=== PATIENT | male | born 1970 | race Caucasian/White ===

== ENCOUNTER 2017-03-31 01:50 | Inpatient (IN) | payer BC ==
[~2017-03-31] VITALS: Ht 177.8 cm; Wt 100.6 kg
--- NOTE | ~2017-03-31 | OP ---
PATIENT NAME: JANEL TORREZ MEDICAL RECORD: [id number] :66 LOCATION:D.M2 D.2119 ADMISSION DATE:03/31/17 SURGEON: RENETTA TRUONG MD DATE OF OPERATION: 04/01/2017 PREOPERATIVE DIAGNOSES: 1. Acute calculous cholecystitis. 2. Chronic low back pain. POSTOPERATIVE DIAGNOSES: 1. Acute calculous cholecystitis. 2. Chronic low back pain. PROCEDURE: Laparoscopic cholecystectomy. SURGEON: Renetta Truong MD REPORT OF PROCEDURE: The patient's abdomen was prepped and draped in sterile fashion. A cutdown was made on the superior aspect of the umbilicus, 0 Vicryls were placed on the fascia bilaterally and the fascia was incised with 15-blade. I then bluntly entered the peritoneal cavity and placed a 12-mm Coco port. Under direct visualization, a 5 mm trocar was placed in the epigastrium and 2 more 5-mm trocars were placed in the right subcostal region. There was a lot of inflammatory adhesions of fatty tissue to the patient's gallbladder. We were able to pull some of this down. I could see the gallbladder was very distended and swollen. We aspirated the gallbladder and there was a clear return of fluid consistent with hydrops gallbladder. We continued our dissection down. We were eventually able to find the cystic artery and cystic duct. These structures were clipped proximally and distally and ligated in standard fashion. The gallbladder was then taken off the liver bed using electrocautery and placed into an Endo Catch bag. Any bleeding from the liver bed was treated with electrocautery. We irrigated out the right upper quadrant and assured there was no sign of any bleeding or bile leakage. At this point, the ports and insufflation were then removed and the gallbladder was taken out through the umbilicus. The umbilical fascia was closed with interrupted 0 Vicryls times 3. The wounds were irrigated out with normal saline and infused with 10 mL of 0.25% Marcaine with epinephrine. The skin incisions were all closed with subcutaneous 5-0 Monocryl and dressed appropriately. COMPLICATIONS: None. CONDITION: Stable. ANESTHESIA: General endotracheal and local. BLOOD LOSS: 50 mL. TRANSINT:[id number] Voice Confirmation ID: [id number] DOCUMENT ID: [id number] OPERATIVE REPORT [id number] JANEL TORREZ RENETTA TRUONG MD CC: [id number] DICTATION DATE: 04/01/17 1504 ELECTROTYPER HELPER: 04/01/171910 ADM IN [facility] [address] [place] [id number]
--- NOTE | ~2017-03-31 | CN ---
PATIENT NAME:JANEL TORREZ MEDICAL RECORD: [id number] : 66 LOCATION:D. D.2119 ADMIT DATE: 03/31/17 ACCOUNT: [id number] CONSULTING PHYSICIAN: YOSVANY WILL MD REFERRING PHYSICIAN: AUGUST TAMAYO MD DATE OF CONSULTATION: 03/31/2017 CONSULT REQUESTING PHYSICIAN: August Tamayo MD. REASON FOR CONSULTATION: Pulmonary fibrosis. HISTORY OF PRESENT ILLNESS: Mr. Torrez is a 46-year-old gentleman who has developed right upper quadrant pain. He was also having associated chest pain. The patient went to the [facility]. He had a CT angiography, which showed some pulmonary fibrosis. The patient also carries a diagnosis of COPD, but he is doing fairly and he is just using Pulmicort inhaler. The patient is still an everyday smoker, half pack per day. He was a pack a day since the age of 15. REVIEW OF SYSTEMS: As in history of present illness. PAST MEDICAL HISTORY: 1. Hypertension. 2. History of pneumonia. 3. COPD. 4. He has a history of cholecystitis. PAST SURGICAL HISTORY: He has a back surgery. ALLERGIES: HE IS ALLERGIC TO TORADOL. PRESENT MEDICATIONS: WP Engine was reviewed. PERSONAL AND SOCIAL HISTORY: The patient is still everyday smoker, half pack per day. He is a nondrinker. FAMILY HISTORY: Significant for parent has cancer. PHYSICAL EXAMINATION: GENERAL: Now, the patient is lying comfortably in bed. He is not in acute distress. VITAL SIGNS: The blood pressure is 91/58, pulse is 75, respirations 16, temperature is 97.7, and SpO2 is 95% on room air. HEENT: Conjunctivae are pink, sclerae nonicteric. NECK: Supple, no JVD. CHEST: The chest excursion is minimal on both sides. There are bibasilar crackles. No wheezing. HEART: Rhythm regular, normal sound, no murmur. ABDOMEN: Soft. Bowel sounds present. No hepatosplenomegaly. RECTAL: Deferred. EXTREMITIES: No cyanosis, no clubbing, no pedal edema. SKIN: Warm. Normal turgor. CENTRAL NERVOUS SYSTEM: The patient is awake and alert. There is no obvious cranial nerve abnormality. The gait was not tested. IMAGING: CTA of the chest from [facility], there is bilateral pulmonary CONSULT REPORT [id number] JANEL TORREZ ADRIEL fibrosis. There were no pulmonary embolisms. OTHER LABORATORY DATA: CBC: WBC 8.3. There are no labs available over here. In April, his SINCERE was negative. The ANCA was negative. Rheumatoid factor was negative. IMPRESSION: 1. Possible pulmonary fibrosis, rule out pulmonary edema. 2. Chronic obstructive pulmonary disease without exacerbation. 3. Cholecystitis and cholelithiasis. 4. Tobacco dependence syndrome. 5. Hypertension. RECOMMENDATION: 1. The patient has negative rheumatoid factor and SINCERE. He also had a negative ANCA in April 2015. 2. We will check a proBNP and follow up chest radiograph. 3. Cardiac echo if required. 4. The patient was counseled to quit smoking. 5. Albuterol and ipratropium nebulizer, Brovana and budesonide nebulizer. 6. The patient will need full PFT as outpatient to rule out any restriction. Dr. Tamayo, thank you for involving me in the care of Mr. Torrez. TRANSINT:[id number] Voice Confirmation ID: [id number] DOCUMENT ID: [id number] YOSVANY WILL MD CC: AUGUST TAMAYO MD [id number] DICTATION DATE: 03/31/17 1622 INSIDE SALES RECRUITER: 03/31/17 1726 ADM IN [place] [id number] [place] [id number]
--- NOTE | 2017-03-31 01:30 | NUR ---
PT ARRIVES VIA EMS FROM [facility]. ASSISTED INTO ROOM AND PLACED ON TELEMETRY - NSR ON MONITOR, HR 90'S. O2 2LPM NC, SATS 97%. MEDICATION RECONCILED WITH THE PT AT THE BEDSIDE. ADMISSION ASSESSMENT AND HISTORY COMPLETED. VSS, AFEBRILE. C/O RUQ PAIN. TORADOL ORDERED FOR PAIN ON TRANSFER ORDERS FROM DR TAMAYO'S OFFICE. PT UPDATED ON POC AND UNIT ROUTINES AND PROTOCOLS DISCUSSED, VERBALIZED UNDERSTANDING. WILL CONT TO MONITOR.
[~2017-03-31 01:50] MED LIST: COMBIVENT RESPIM4 GM INH; FEXMID7.5 MG PO; HYDROCODONE-APA1 TAB PO; MEDROL DOSE PACK4 MG PO; MUCINEX600 MG PO
[2017-03-31] MEDS ORDERED: PULMICORT180 MCG/AE INH (01:55)
[2017-03-31] MEDS ORDERED: PROZAC20 MG PO (01:56)
[2017-03-31] MEDS ORDERED: VITAMIN D5000 UNIT PO (01:56)
[2017-03-31] MEDS ORDERED: LISINOPRIL10 MG PO (01:56)
[2017-03-31 01:58] VITALS: BMI 30.9
[2017-03-31] MEDS ORDERED: BUTRANS1 EAC1 TRANSDERM (01:58)
--- NOTE | 2017-03-31 02:41 | NUR ---
PT STATES UPON ADMISSION WHEN ASKED ABOUT HIS ALLERGIES THE PT STATES THAT HE IS NOT ALLERGIC TO ANYTHING. PT WITH TORADOL 30 MG IV Q6H PRN PAIN ORDERED BY HIS PCP, DR TAMAYO, ON TRANSFER ORDERS. BEFORE GIVING PT TORADOL ORDERED HIS FIANCE ARRIVES AND STATES HE IS ALLERGIC TO TORADOL AND THAT MORPHINE DOES NOT WORK FOR HIS PAIN. FIANCE STATES THAT HE NEEDS "DILAUDID" AND REQUESTS THIS NURSE TO CALL THE PHYSICIAN AT THIS TIME. CALL TO LUIS SORTO APN ON-CALL. ORDER RECEIVED FOR DILAUDID 1 MG IV Q4H PRN PAIN. PT AND HIS FIANCE UPDATED ON POC AND VERBALIZES UNDERSTANDING.
[2017-03-31 04:00] VITALS: BP 91/58
--- NOTE | 2017-03-31 07:30 | NUR ---
AAOX4 RESP UNLABORED SKIN W/D DENIES ANY NEEDS OR DISCOMFORT AT THIS TIME
[2017-03-31 08:15] VITALS: BP 100/60
[2017-03-31 12:00] VITALS: BP 127/66
--- NOTE | 2017-03-31 13:24 | NUR ---
RESTING QUIETLY WATCHING TV DENIES ANY NEEDS OR DISCOMFORT NAD NOTED
[2017-03-31 16:05] VITALS: BP 103/65
[2017-03-31 20:00] VITALS: BP 93/61
--- NOTE | 2017-03-31 20:00 | NUR ---
PT RESTING IN BED. UNIT #1 OF 2 PBC IN PROGRESS. WILL VS BEING MONITORED. FOLE PATENT TO BEDSIDE DRAIN BED WITH BLOODY URINE. DENIES PAIN OR DISCOMFORT. SEE ASSESSMENT AND CPOC.
[2017-03-31 23:37] VITALS: BP 97/57
--- NOTE | 2017-04-01 00:45 | NUR ---
NEW IVF INFUSING. PT AWAKE, ASLEEP AT BEDISE
[2017-04-01 05:00] VITALS: BP 95/60
[2017-04-01 06:30] LABS: BASOPHILS 0.5 % (0-2); EOSINOPHILS 8.5 % (0-7); HEMATOCRIT 38.4 % (42.0-54.0); HEMOGLOBIN 12.8 g/dL (13.5-17.5); LYMPHOCYTES 29.2 % (15-50); MCH 30.8 pg (26.0-34.0); MCHC 33.3 g/dL (31.0-37.0); MCV 92.5 fL (80.0-100.0); MEAN PLATELET VOLUME 9.4 fL (7.4-10.4); MONOCYTES 10.3 % (2-11); NEUTROPHILS 51.5 % (40-80); RBC 4.15 10x6/uL (4.20-6.10); RDW 14.3 % (11.5-14.5); WBC 8.1 10x3/uL (4.8-10.8)
[2017-04-01 06:33] LABS: PLATELET COUNT 198 10x3/uL (130-400)
[2017-04-01 06:51] LABS: ALBUMIN 3.1 g/dL (3.4-5.0); ALKALINE PHOSPHATASE 71 U/L (46-116); ALT (SGPT) 74 U/L (10-68); CALC OSMOLALITY 279 mosm/kg (275-300); CALCIUM 8.4 mg/dL (8.5-10.1); CARBON DIOXIDE 28.4 mmol/L (21.0-32.0); CHLORIDE - SERUM 104 mmol/L (98-107); GLUCOSE 96 mg/dL (74-106); POTASSIUM - SERUM 3.7 mmol/L (3.5-5.1); PROTEIN - SERUM 6.7 g/dL (6.4-8.2); SODIUM 141 mmol/L (136-145); UREA NITROGEN 10 mg/dL (7-18); eGFR NON AFRICAN AMERICAN 85 mL/min (90-120)
[2017-04-01 08:00] VITALS: BP 103/48
--- NOTE | 2017-04-01 10:28 | CN ---
PATIENT NAME:JANEL TORREZ MEDICAL RECORD: [id number] : 66 LOCATION:D. D.2119 ADMIT DATE: 03/31/17 ACCOUNT: [id number] CONSULTING PHYSICIAN: BAL HUITRON MD REFERRING PHYSICIAN: TEODORO TAMAYO MD DATE OF CONSULTATION: 03/31/2017 HISTORY OF PRESENT ILLNESS: A 46-year-old gentleman with a known cardiovascular history. He has a history of hypertension, back surgery in the past. He was admitted with atypical chest pain and was found to abnormal ECG. We are asked to see him for the above. He was found to have acute cholecystitis, may need surgical intervention at some point. We are asked to see him concerning his cardiovascular status. PAST MEDICAL HISTORY: Includes: 1. History of obstructive pulmonary disease. 2. Chronic pain syndrome. ALLERGIES: TORADOL. MEDICATIONS: Include Pulmicort inhaler 2 puffs b.i.d., Kidder 10/325 two tabs q.6 p.r.n., buprenorphine 10 mcg an hour patch, Prozac 20 q. day, Lisinopril 5 q. day. SOCIAL HISTORY: Lives in [place]. Smokes about a pack a day. No illicit drugs. Easily takes care of all his ADLs. REVIEW OF SYSTEMS: The patient reports easy bruising but reports no swollen glands. The patient reports no fever, no night sweats, no significant weight gain, no significant weight loss. No significant exercise tolerance. The patient reports no dry eyes, no irritation, no vision change. Patient reports no difficulty hearing and no ear pain. Patient reports no frequent nose bleeds or nose and sinus problems. Patient reports on arm pain on exertion. No shortness of breath while lying down. No history of heart murmur. Patient reports no cough, no wheezing or coughing up blood. Patient reports no abdominal pain, no vomiting. Normal appetite. No diarrhea and not vomiting blood. No nausea and no constipation. Patient reports no incontinence. No difficulty urinating. No hematuria. No increased frequency. Patient reports no muscle aches. No weakness, no arthralgias, no back pain. No swelling of the extremities. Patient reports no abnormal mole, no jaundice, no rashes. Reports no loss of consciousness. No weakness and no numbness. No seizures, dizziness, or headaches. The patient reports no depression, no sleep disturbance, feeling safe in a relationship and no alcohol abuse. Patient reports on fatigue. Reports no runny nose or sinus pressure. No itching, no hives, and no frequent sneezing. PHYSICAL EXAMINATION: GENERAL: Pleasant. No acute distress. VITAL SIGNS: Blood pressure 100/60, pulse 68, occasional extrasystole. HEENT: Normocephalic, atraumatic. NECK: No bruits noted. HEART: Regular, II/ systolic ejection murmur. LUNGS: Prolonged expiratory phase, few wheezes. ABDOMEN: Soft, nontender. EXTREMITIES: Pulses well preserved, 2+ with no edema. CONSULT REPORT [id number] TORREZJANEL NEUROLOGIC: Grossly intact. DIAGNOSTIC DATA: ECG shows right bundle and right atrial abnormality, leftward axis. IMPRESSION: Suspect noncardiac etiology with chest pain. Enzymes negative so far. We will check echocardiographic study. No contraindication to surgery from cardiovascular standpoint. TRANSINT:[id number] Voice Confirmation ID: [id number] DOCUMENT ID: [id number] BAL HUITRON MD at 1028 CC: [id number] DICTATION DATE: 03/31/17 1001 SODA FLAKER: 03/31/17 1126 ADM IN [facility] [address] [place] [address]
[2017-04-01 12:00] VITALS: BP 108/64
[2017-04-01 12:39] VITALS: Ht 177.8 cm; Wt 100.6 kg
[2017-04-01 15:49] VITALS: BP 121/72
--- NOTE | 2017-04-01 15:54 | NUR ---
BACK FROM OR. VS WNL. BANDAIDS X 4 TO ABD. NOTED. WILL CONT. PLAN OF CARE.
[2017-04-01 16:00] VITALS: BP 121/72
--- NOTE | 2017-04-01 16:46 | NUR ---
TOLERATING LIQUIDS. DIET ADVANCED TO SOFT.
--- NOTE | 2017-04-01 19:00 | NUR ---
RECEIVED REPORT AND ASSUMED PT CARE FROM DAY SHIFT NURSE @ THIS TIME.
--- NOTE | 2017-04-01 19:03 | NUR ---
RECEIVED REPORT AND ASSUMED PT CARE FROM DAY SHIFT NURSE @ THIS TIME
[2017-04-02 01:09] VITALS: BP 101/55
[2017-04-02 04:00] VITALS: BP 92/42
--- NOTE | 2017-04-02 04:15 | NUR ---
PT STATES THAT OTHER SPATIAL SCIENTIST IS NOT CONTROLLING HIS PAIN VERY WELL AT THIS TIME. WOULD LIKE TO KNOW IF DOSAGE CAN BE INCREASED. EXPLAINED TO HIM IT COULD NOT. AFTER REVIEWING HIS ORDERS AND MEDICATION ON EMAR, PT HAS DILAUDID 1 MG IV ORDERED Q4H PRN. WILL MEDICATE AT THIS TIME.
--- NOTE | 2017-04-02 04:20 | NUR ---
AFTER FURTHER RESEARCHING, WHILE ON PHARMACEUTICAL PROCESS ENGINEER PT CAN ONLY RECEIVE DILAUDID 0.4 MG IV Q3H PRN FOR PAIN. WILL MONITOR.
[2017-04-02 08:00] VITALS: BP 119/64
--- NOTE | 2017-04-02 09:00 | NUR ---
UP AMBULATING HALLWAY. GAIT STEADY.
--- NOTE | 2017-04-02 09:56 | NUR ---
IV RESTARTED TO LEFT FA WITH 22 GAUGE CATH X 2 STICKS AND FLUSHED WITH NS. LINE IS PATENT.
[2017-04-02 12:00] VITALS: BP 92/51
[2017-04-02 13:14] LABS: IMMUNOGLOBULIN A 142 mg/dL (90-386); IMMUNOGLOBULIN M 41 mg/dL (20-172)
[2017-04-02] MEDS ORDERED: PERCOCET 10/3251 TA1 PO (14:47)
[2017-04-02 16:00] VITALS: BP 107/53
[2017-04-02 19:00] VITALS: BP 115/78
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
--- NOTE | 2017-04-02 20:58 | NUR ---
PT ALREADY COMPLETED ABT AND IS NOW SALINE LOCKED AND UP AND WALKING HALLWAY WITH HIS .
[2017-04-03] VITALS: BP 115/47
[2017-04-03 03:10] LABS: IGG SUBCLASS 1 663 mg/dL (248-810); IGG SUBCLASS 2 201 mg/dL (130-555); IGG SUBCLASS 3 65 mg/dL (15-102); IGG SUBCLASS 4 10 mg/dL (2-96)
--- NOTE | 2017-04-03 04:36 | NUR ---
PT WAS AWAKENED FOR AM LAB AND REQUESTED HIS IV DILAUDID. MEDICATION GIVEN. PT BACK TO SLEEP.
[2017-04-03 05:07] LABS: BASOPHILS 0.3 % (0-2); EOSINOPHILS 7.7 % (0-7); HEMATOCRIT 35.3 % (42.0-54.0); HEMOGLOBIN 11.8 g/dL (13.5-17.5); IMMATURE GRANULOCYTES 0.1 % (0-5); MCH 30.8 pg (26.0-34.0); MCHC 33.4 g/dL (31.0-37.0); MCV 92.2 fL (80.0-100.0); MEAN PLATELET VOLUME 9.6 fL (7.4-10.4); NEUTROPHILS 55.9 % (40-80); PLATELET COUNT 207 10x3/uL (130-400); RBC 3.83 10x6/uL (4.20-6.10); RDW 14.4 % (11.5-14.5); WBC 9.8 10x3/uL (4.8-10.8)
[2017-04-03 05:53] LABS: MAGNESIUM - SERUM 1.9 mg/dL (1.8-2.4); PHOSPHOROUS 3.9 mg/dL (2.5-4.9)
--- NOTE | 2017-04-03 07:28 | NUR ---
PT LAYING FLAT IN BED WITH IN BED WITH HIM ASLEEP NO S/S DISTRESS NOTED RR EVEN AND UNLABORED. PT DENIES ANY NEEDS AT THIS TIME WILL CONT TO MONITOR
[2017-04-03] MEDS ORDERED: PULMICORT180 MCG/AE INH (08:18)
[2017-04-03] MEDS ORDERED: BUTRANS1 EAC1 TRANSDERM (08:18)
[2017-04-03] MEDS ORDERED: LISINOPRIL10 MG PO (08:18)
[2017-04-03] MEDS ORDERED: PROZAC20 MG PO (08:18)
[2017-04-03] MEDS ORDERED: HYDROCODONE-APA1 TAB PO (08:18)
[2017-04-03] MEDS ORDERED: VITAMIN D5000 UNIT PO (08:19)
[2017-04-03 08:29] VITALS: BP 103/62
--- NOTE | 2017-04-03 11:08 | NUR ---
CALLED TO PT ROOM PT C/O REDNESS AT INSERTION SITE. PT INSERTION SITE BY BELLY BUTTON IS REDDENED AROUND SITE. WARM TO TOUCH, NO DRAINAGE NOTED. NOT ANY MORE SWOLLEN THAN ABDOMEN WAS THIS AM DURING ASSESSMENT. PT C/O PAIN AT SITE 03/[address] TRUONG TO LET HIM KNOW OF CHANGE.
--- NOTE | 2017-04-03 11:16 | NUR ---
Patient Name: JANEL TORREZ Admission Status: Elective Accout number: [id number] Admission Date: 03-31-2017 : 1970 Admission Diagnosis:CHEST PAIN, UNSPECIFIED Attending: TEODORO TAMAYO Current LOS: 3 Anticipated DC Date: 04-03-2017 Planned Disposition: Home Primary Insurance: [employer] OUT OF STATE Discharge Planning Comments: * Is the patient Alert and Oriented? Yes 0 * How many steps to enter\exit or inside your home? 3 0 * PCP DR. TAMAYO 0 * Pharmacy [facility] 0 * Preadmission Environment Home with Family 0 * ADLs Independent 0 * Equipment None 0 * Other Equipment [facility] 0 * List name and contact numbers for known caregivers / representatives who currently or will assist patient after discharge: FREDDY MITCHELL, SISTER, GUERO CRAWLEY, SIGNFICANT OTHER, 0 * Community resources currently utilized None 0 * Please name any agencies selected above. NONE 0 * Additional services required to return to the preadmission environment? No 0 * Can the patient safely return to the preadmission environment? Yes 0 * Has this patient been hospitalized within the prior 30 days at any hospital? No 0 CM MET WITH PT IN ROOM TO DISCUSS DISCHARGE PLANNING AND NEEDS. PT REPORTS LIVING AT HOME INDEPENDENTLY WITH HIS SIGNIFICANT OTHER. PT HAS NO MEDICAL EQUIPMENT AND NO OUTSIDE SERVICES ASSISTING IN THE HOME. CM DISCUSSED AVAILABILITY OF HOME HEALTH, REHAB SERVICES AND MEDICAL EQUIPMENT. PT DENIES DISCHARGE NEEDS, REPORTS SIGNIFICANT OTHER IS HERE TO PICK HIM UP FOR DISCHARGE HOME. 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 Field Sales Specialist: Johnathan Lewis
--- NOTE | 2017-04-03 11:21 | NUR ---
DR TRUONG CALLED BACK AND SAID HE WAS ALMOST FINISHED WITH CLINIC AND HE WOULD COME LOOK AT PT
[2017-04-03 11:35] VITALS: BP 103/57
--- NOTE | 2017-04-03 13:02 | NUR ---
DR TRUONG CAME TO SEE PT AND IS OK FOR PT TO BE DC HOME. REDNESS AROUND BELLY BUTTON HAS SUBSIDED TO A LIGHT PINK IN COLOR. WENT OVER DC INSTRUCTIONS WITH PT PT VERBALIZES UNDERSTANDING. PT WAS GIVEN WRITTEN SCRIPT FOR OXYCODONE, SCRIPT IS IN PT POSSESSION. DC PIV WITH CATH TIP INTACT. PT WAITING ON GIRLFRIEND TO GET HERE TO PICK HIM UP.
--- NOTE | 2017-04-03 13:32 | NUR ---
CALLED DR [facility] AND REQUESTED TO MAKE FOLLOW UP APPT. THEY ARE CALLING US BACK TO SET UP FOLLOW UP APPT
--- NOTE | 2017-04-03 13:38 | NUR ---
pt girlfriend here to pick him up. pt refused wheelchair and walked out with girlfriend. will call pt with appt with dr luevano when office calls me back
--- NOTE | 2017-04-03 15:08 | NUR ---
SET UP FOLLOW UP DR HAINES. CALLED PT TO LET HIM KNOW OF FOLLOW UP APPT DATES. SPOKE WITH PT AND PT VERBALIZES UNDERSTANDING. F/U WITH DR HAINES IS MAY 23 AT 10:00AM. CHEST XR, PFT, AND 6 MIN WALK TEST IS ON MAY 08 AT 10:00, CHECK IN AT 0930.
--- NOTE | 2017-04-04 13:55 | EC ---
PATIENT:JANEL TORREZ DATE OF SERVICE: 03/31/17 SEX: M MEDICAL RECORD: [id number] DATE OF : [birth year] LOCATION:D.M2 D.211 AGE OF PATIENT: 46 ADMISSION DATE: 03/31/17 REFERRING PHYSICIAN: INTERPRETING PHYSICIAN: BAL HUITRON MD ECHOCARDIOGRAM REPORT ECHO CHARGES 4 ECHO COMPLETE CLINICAL DIAGNOSIS: ACS, PRE-OP HX HTN ECHOCARDIOGRAPHIC MEASUREMENTS (adult normal given) AC root (d.<3.7cm) 3.3 cm LV Septum d (<1.2 cm> 1.4 cm Valve Excursion 2.5 cm LV Septum (systole) 1.6 cm Left Atria (s.<4.0cm> 3.9 cm LVPW d(<1.2cm) 1.4 cm RV (d.<2.3cm) 3.9 cm LVPW (sytole) 1.5 cm LV diastole(<5.6CM) 4.1 cm MV E-F(>70mm/sec) cm LV systole 2.2 cm LVOT Diameter 2.2 cm MV exc.(>10mm) 1.7 cm Est.ejection fraction (50-75%) % Pericardial Effusion N DOPPLER: LVIT cm/sec A 90.0 cm/sec E 76.0 cm/sec LA cm/sec RVSP 36 mmHg LVOT 115 cm/sec AOP1/2T m/s Asc. Ao 134 cm/sec RVOT 67 cm/sec RA cm/sec PA 124 cm/sec AV Gradient Peak 7.14 mmHg AV Mean 3.53 mmHg AV Area 3.2 cm MV Gradient Peak 5.52 mmHg MV Mean 1.83 mmHg MV Area cm COMMENTS: Parking Meter Mechanic: 2 EJ BAIG Donor Support Technician: 3 Dr. Thao TAPE# PACS DATE OF SERVICE: 03/31/2017 Adequate 2D echo, color flow Doppler and M-Mode. Mild LVH. LV internal dimension is normal. Wall motion is normal. EF is greater than 55%. Aortic valve is tricuspid. No evidence of stenosis by Doppler interrogation. The left atrium is normal at 3.9 cm. Mitral shows no prolapse. Trace MR. Right-sided chamber is normal. Trace TR. TRANSINT:[id number] Voice Confirmation ID: [id number] DOCUMENT ID: [id number] 04/04/2017 Edited to correct date of service, dmm. ECHOCARDIOGRAM REPORT [id number] JANEL TORREZ,BAL Logan MD at 1355 CC: [id number] DICTATION DATE: 04/01/17916 HELICOPTER ENGINEER: 04/01/17 1257 DIS IN 04/03/17 [place] [id number] [place] [id number]
== END 2017-04-03 13:38 | disposition home or self-care (01) | DRG 419 ==
LOC: D.M2 01:50 → OBSVTIME 01:50 → D.M2 18:35
PROVIDERS: Internal Medicine Pulmonary Disease; Surgery; ADMIT Legal Medicine
PROC: 0FT44ZZ Resection of Gallbladder, Percutaneous Endoscopic Approach (ICD-10-PCS; principal; 2017-04-01 12:00)
DX: K80.00 Calculus of gallbladder with acute cholecystitis without obstruction (principal); I10 Essential (primary) hypertension; J44.9 Chronic obstructive pulmonary disease, unspecified; F17.200 Nicotine dependence, unspecified, uncomplicated; J84.10 Pulmonary fibrosis, unspecified

== ENCOUNTER 2017-05-07 09:48 | Emergency (ER) | payer BC ==
[2017-04-01 12:39] VITALS: BMI 31.7
[~2017-05-07 09:48] MED LIST changes: +BUTRANS1 EAC1 TRANSDERM; +LISINOPRIL10 MG PO; +PERCOCET 10/3251 TA1 PO; +PROZAC20 MG PO; +PULMICORT180 MCG/AE INH; +VITAMIN D5000 UNIT PO
[2017-05-07 10:50] LABS: BASOPHILS 0.4 % (0-2); EOSINOPHILS 4.5 % (0-7); HEMOGLOBIN 12.8 g/dL (13.5-17.5); IMMATURE GRANULOCYTES 0.2 % (0-5); LYMPHOCYTES 32.6 % (15-50); MCH 31.6 pg (26.0-34.0); MCHC 34.6 g/dL (31.0-37.0); MCV 91.4 fL (80.0-100.0); MEAN PLATELET VOLUME 10.1 fL (7.4-10.4); MONOCYTES 12.2 % (2-11); NEUTROPHILS 50.1 % (40-80); RBC 4.05 10x6/uL (4.20-6.10); RDW 15.9 % (11.5-14.5); WBC 8.5 10x3/uL (4.8-10.8)
[2017-05-07 10:58] LABS: APTT 31.6 SECONDS (22.8-39.4)
[2017-05-07 11:00] LABS: PLATELET COUNT 270 10x3/uL (130-400)
[2017-05-07 11:07] LABS: APPEARANCE CLEAR (CLEAR); COLOR YELLOW (YELLOW)
[2017-05-07 11:08] LABS: BILIRUBIN NEGATIVE (NEGATIVE); GLUCOSE NEGATIVE (NEGATIVE); KETONE NEGATIVE (NEGATIVE); NITRITE NEGATIVE (NEGATIVE); PROTEIN NEGATIVE (NEGATIVE); UROBILINOGEN NORMAL (NORMAL)
[2017-05-07 12:01] LABS: ALBUMIN 3.2 g/dL (3.4-5.0); ALKALINE PHOSPHATASE 115 U/L (46-116); ALT (SGPT) 604 U/L (10-68); AMYLASE - SERUM 28 U/L (25-115); CALC OSMOLALITY 281 mosm/kg (275-300); CALCIUM 8.2 mg/dL (8.5-10.1); CHLORIDE - SERUM 107 mmol/L (98-107); CREATININE - SERUM 0.7 mg/dL (0.6-1.3); GLUCOSE 106 mg/dL (74-106); LIPASE 82 U/L (73-393); PROTEIN - SERUM 6.3 g/dL (6.4-8.2); SODIUM 139 mmol/L (136-145); UREA NITROGEN 25 mg/dL (7-18); eGFR NON AFRICAN AMERICAN > 90 mL/min (90-120)
== END 2017-05-07 14:42 | disposition home or self-care (01) ==
LOC: D.ER 09:48
PROVIDERS: Nurse Practitioner Family
DX: K92.1 Melena (principal); R10.9 Unspecified abdominal pain; F17.200 Nicotine dependence, unspecified, uncomplicated

== ENCOUNTER 2017-11-04 16:03 | Emergency (ER) | payer BC ==
[2017-04-01 12:39] VITALS: BMI 31.7
[2017-11-04 17:33] LABS: BASOPHILS 0.2 % (0-2); EOSINOPHILS 1.5 % (0-7); HEMATOCRIT 33.3 % (42.0-54.0); HEMOGLOBIN 10.5 g/dL (13.5-17.5); IMMATURE GRANULOCYTES 0.2 % (0-5); MCH 24.6 pg (26.0-34.0); MCHC 31.5 g/dL (31.0-37.0); MCV 78.2 fL (80.0-100.0); MEAN PLATELET VOLUME 8.7 fL (7.4-10.4); MONOCYTES 2.4 % (2-11); NEUTROPHILS 85.7 % (40-80); PLATELET COUNT 297 10x3/uL (130-400); RBC 4.26 10x6/uL (4.20-6.10); RDW 17.1 % (11.5-14.5); WBC 8.8 10x3/uL (4.8-10.8)
[2017-11-04 17:52] LABS: ALBUMIN 3.4 g/dL (3.4-5.0); ALKALINE PHOSPHATASE 127 U/L (46-116); ALT (SGPT) 50 U/L (10-68); BILIRUBIN - TOTAL 0.14 mg/dL (0.2-1.3); CALC OSMOLALITY 277 mosm/kg (275-300); CALCIUM 8.4 mg/dL (8.5-10.1); CARBON DIOXIDE 26.2 mmol/L (21.0-32.0); CHLORIDE - SERUM 104 mmol/L (98-107); CREATININE - SERUM 0.9 mg/dL (0.6-1.3); GLUCOSE 101 mg/dL (74-106); POTASSIUM - SERUM 4.1 mmol/L (3.5-5.1); PROTEIN - SERUM 8.5 g/dL (6.4-8.2); SODIUM 139 mmol/L (136-145); UREA NITROGEN 12 mg/dL (7-18); eGFR NON AFRICAN AMERICAN > 90 mL/min (90-120)
[2017-11-04 17:56] LABS: TROPONIN-I < 0.017 ng/mL (0.000-0.060)
== END 2017-11-04 18:20 | disposition home or self-care (01) ==
LOC: D.ER 16:03
PROVIDERS: Emergency Medicine
DX: J18.9 Pneumonia, unspecified organism (principal); F17.200 Nicotine dependence, unspecified, uncomplicated

== ENCOUNTER 2019-05-03 01:23 | Emergency (ER) | payer BC ==
[~2019-05-03] VITALS: Ht 177.8 cm; Wt 90.9 kg
[2019-05-03 01:26] VITALS: Ht 177.8 cm; Wt 90.9 kg
[2019-05-03] MEDS ORDERED: HYDROCODONE-A1 UDTA2 PO (02:52)
[2019-05-03 03:30] VITALS: BP 96/57
== END 2019-05-03 03:30 | disposition home or self-care (01) ==
LOC: D.ER 01:23
DX: S61.210A Laceration without foreign body of right index finger without damage to nail, initial encounter (principal); W26.0XXA Contact with knife, initial encounter; F17.210 Nicotine dependence, cigarettes, uncomplicated; I10 Essential (primary) hypertension